=== PATIENT | female | born 1995 | race Caucasian/White ===

== ENCOUNTER 2017-08-08 18:25 | Emergency (ER) | payer OTHER ==
[~2017-08-08] VITALS: Ht 160 cm; Wt 104.3 kg
[~2017-08-08 18:25] MED LIST: CAMBIA50 MG; CELEXA20 MG; PHENERGAN25 MG/1 M1
[2017-08-08] MEDS ORDERED: HYDROCODONE/APAP 5MG-325MG TAB PO ONE (18:45)
[2017-08-08 20:57] VITALS: BP 120/70
== END 2017-08-08 21:01 | disposition home or self-care (01) ==
LOC: FSED 18:25
DX: M25.562 Pain in left knee (principal); S83.412A Sprain of medial collateral ligament of left knee, initial encounter; X50.1XXA Overexertion from prolonged static or awkward postures, initial encounter
CPT/HCPCS: 99283

== ENCOUNTER → 2017-09-04 | Outpatient (CLI) | payer OTHER ==
--- NOTE | 2017-09-04 10:35 | Diagnostic Imaging Report ---
TECHNIQUE: Magnetic resonance imaging of the right KNEE was performed WITHOUT injected contrast. HISTORY: knee pain COMPARISON: None available. FINDINGS: LIGAMENTS AND TENDONS: ACL: Intact PCL: Intact Collateral ligaments: Intact Iliotibial band: Unremarkable Popliteal tendon: Intact Extensor mechanism: Lateral patellar tracking with edema and Hoffa's fat superolaterally.. Quadriceps and patellar tendons intact. JOINT: Menisci: Medial: Intact Lateral: Intact Articular Cartilage: Medial Compartment: No focal defect. Lateral Compartment: No focal defect. Patellofemoral Compartment: Mild edema within the lateral patellar cartilage Joint Fluid: The amount of fluid within the joint is within physiologic limits. BONE: No focal or infiltrative bone marrow replacing abnormality. No acute fracture. SOFT TISSUES: Edema within the proximal gastrocnemius. IMPRESSION: Findings of lateral patellar maltracking with edema in Hoffa's fat and the lateral patellar cartilage. Edema in the proximal gastrocnemius may reflect strain versus delayed muscle soreness. Signed by: Dr. Cleve Brown M.D. on 09/04/2017 10:32 AM
== END ==
LOC: MRI 07:32
PROVIDERS: ATTEND Specialist
DX: S83.281A Other tear of lateral meniscus, current injury, right knee, initial encounter (principal)

== ENCOUNTER → 2017-10-30 | Day surgery (SDC) | payer OTHER ==
[~2017-10-30] MED LIST changes: +ACETAMINOPHEN 1000 MG/100 ML IV ONE; +ATENOLOL25 MG PO; +BUPIVACAINE 0.5%/EPI 30 ML SDV INJ ONE; +CAMBIA50 MG PO; +CEFAZOLIN SOD 2 GM/D5W 50ML 50 ML IV ONE; +DEXAMETHASONE SOD PHOS INJ 4 MG/ML VIAL ONE; +FENTANYL CITRATE/PF 100MCG/2 ML INJ ONE; +LIDOCAINE HCL 2% LOCAL INJ 5 ML SDV VIAL INJ ONE; +MIDAZOLAM HCL 2 MG/2 ML VIAL ONE; +ONDANSETRON HCL INJ 2 MG/ML VIAL ONE; +PHENERGAN PO; +PROPOFOL IV EMULSION 10 MG/ML 20 ML VIAL ONE; +SEVOFLURANE INHAL SOLN 250 ML PEN BTL ONE; +TOPIRAMATE25 MG PO
--- NOTE | 2017-11-01 20:26 | Operative Report ---
DATE OF PROCEDURE: October 30, 2017 PREOPERATIVE DIAGNOSIS: Right knee pain, possible occult right lateral meniscus tear. POSTOPERATIVE DIAGNOSIS: Right knee pain. OPERATION/PROCEDURE PERFORMED: Patient underwent right knee diagnostic arthroscopy. COMMUNICATIONS PROFESSIONAL: None. ANESTHESIA: General endotracheal intubation anesthesia. IV FLUIDS: Per the anesthesia record. BRIEF DESCRIPTION OF OPERATIVE PROCEDURE: Ms. Perez was taken to the operating room, placed in supine position on operating table. Following induction of general anesthesia, as well as endotracheal intubation, patient's right lower extremity was examined under anesthesia. She was found to have no effusion within the knee joint. Range of motion of the knee was normal. Her ligaments were stable. The patient's lower extremity was prepped and draped in standard surgical fashion. A 2-portal technique used to provide this patient arthroscopic evaluation of the joint. Examination of suprapatellar pouch, medial and lateral gutters found no evidence of loose bodies. The scope was advanced in medial compartment. Examination of medial compartment demonstrated no chondromalacia. There was no evidence of meniscus injury. The scope was advanced in the intercondylar notch. The anterior cruciate ligament was identified, found to be normal. The scope was advanced in lateral compartment and the lateral meniscus was thoroughly examined. There was no significant chondromalacia of the articulating surfaces. The knee was deflated with sterile normal saline. The portal sites were closed. Sterile dressings were applied and the patient was awakened, taken to post anesthesia care unit in stable condition. Job#: [id number] CQ
== END | disposition home or self-care (01) ==
LOC: OR 05:20
PROVIDERS: ATTEND Specialist
DX: S83.261A Peripheral tear of lateral meniscus, current injury, right knee, initial encounter (principal); S86.811A Strain of other muscle(s) and tendon(s) at lower leg level, right leg, initial encounter; G51.0 Bell's palsy; I10 Essential (primary) hypertension; E11.9 Type 2 diabetes mellitus without complications; Z88.8 Allergy status to other drugs, medicaments and biological substances; X58.XXXA Exposure to other specified factors, initial encounter; Z01.810 Encounter for preprocedural cardiovascular examination; Z68.41 Body mass index [BMI] 40.0-44.9, adult
CPT/HCPCS: 29870; 81025; 93005; J1100; J2001; J2250; J2405

== ENCOUNTER → 2020-02-15 | Day surgery (SDC) | payer OTHER ==
[2020-02-11 09:25] LABS: BASOPHILS % 0.4 % (0.0-1.0); EOSINOPHILS # (AUTO) 0.2 (0.0-0.4); EOSINOPHILS % 1.7 % (0.0-6.0); HEMATOCRIT 40.1 % (34.2-44.1); HEMOGLOBIN 13.4 g/dL (12.0-16.0); LYMPHOCYTES % 29.9 % (18.0-39.1); MEAN CORPUSCULAR HGB CONC 33.4 g/dL (31-35); MEAN CORPUSCULAR VOLUME 89.7 fL (81-99); MONOCYTES # (AUTO) 0.5 (0.2-0.8); MONOCYTES % 4.9 % (4.4-11.3); NEUTROPHILS # (AUTO) 6.2 (2.1-6.9); NEUTROPHILS % 62.7 % (38.7-80.0); PLATELET COUNT 326 x10e3/uL (140-360); RED BLOOD COUNT 4.47 x10e6/uL (3.6-5.1); RED CELL DISTRIBUTION WIDTH 12.8 % (11.7-14.4)
[~2020-02-15] MED LIST changes: -ACETAMINOPHEN 1000 MG/100 ML IV ONE; +BUPIVACAINE 0.25% 30ML SDV ONE; -BUPIVACAINE 0.5%/EPI 30 ML SDV INJ ONE; -CEFAZOLIN SOD 2 GM/D5W 50ML 50 ML IV ONE; +GLYCOPYRROLATE INJ 0.2 MG/ML VIAL ONE; +HYDROCODONE/APAP 7.5MG-325MG 1 EA TAB ONE; +NEOSTIGMINE 1 MG/ML 10ML VIAL ONE; -ONDANSETRON HCL INJ 2 MG/ML VIAL ONE; +ONDANSETRON HCL INJ 2MG/ML 2ML 2 MG/ML VIAL ONE; +ROCURONIUM BROMIDE 10 MG/ML 5ML VIAL IV ONE; +TOPAMAX25 MG PO; +[UNRECOGNIZED DRUG - OTHER] PO
--- NOTE | 2020-02-15 07:05 | NUR ---
SPIRITUAL CARE - Pre-Surgery Assessment: Pt in bed. Pt's boyfriend at bedside. Pt reported supportive attention from family and friends. Intervention: Raveler provided pastoral presence, hospitality, and sympathetic listening. Acquainted pt with availability of graduating machine operator while hospitalized. Outcome: Pt expressed appreciation for visit. No need for follow up indicated at this time. MAEGAN Lamar Spiritual Care Department O: [phone]
--- NOTE | 2020-02-15 10:39 | Operative Report ---
DATE OF PROCEDURE: 02/15/2020 SURGEON: Kristopher Davis MD PREOPERATIVE DIAGNOSIS: Pilonidal cyst with multiple sinuses. POSTOPERATIVE DIAGNOSIS: Pilonidal cyst with multiple sinuses. OPERATION PERFORMED: Wide excision of complex pilonidal cyst with rotational gluteal flap closure. BAND SAW OPERATOR CAKE CUTTING: GEOVANNY Walters. ANESTHESIA: General. COMPLICATIONS: None. ESTIMATED BLOOD LOSS: Minimal. DESCRIPTION OF PROCEDURE: With the patient lying in bed in the prone position under good general endotracheal anesthesia, the perineum and sacral area were prepped with Betadine solution and draped in the usual manner. An elliptical incision was made to include all the midline sinuses from the pilonidal cyst in the sacral area. Incision was deepened through the subcutaneous tissue all the way down to the sacral fascia and the cyst was then totally and completely removed of the fascia, making sure that we did not violate it at any point and was sent for pathological examination. Flaps were then developed in the gluteal aspect on both sides in order to be able to reapproximated. The fascia was then reapproximated at the midline anchoring to the sacral fascia using interrupted sutures of 2-0 Vicryl, the subcutaneous tissue was approximated with 2-0 Vicryl and the skin was closed with interrupted vertical mattress sutures of 2-0 and 3-0 silk. All layers were infiltrated on the way out with solution of 0.25% Marcaine. A dressing was applied. The sponge, lap, and needle count was correct. The patient tolerated the procedure well and returned to the recovery room in stable condition. MD ELMER RahmanR/MODL /[id number]
[2020-02-15 10:40] VITALS: BP 108/62
== END | disposition home or self-care (01) ==
LOC: OR 05:53
PROVIDERS: ATTEND Surgery
DX: L05.91 Pilonidal cyst without abscess (principal); R00.1 Bradycardia, unspecified; I10 Essential (primary) hypertension; Z88.8 Allergy status to other drugs, medicaments and biological substances; Z01.810 Encounter for preprocedural cardiovascular examination; Z01.812 Encounter for preprocedural laboratory examination; Z20.828 Contact with and (suspected) exposure to other viral communicable diseases
CPT/HCPCS: 11772; 36415; 81025; 85025; 88304; 93005; J1100; J2001; J2250; J2405; J2704; J2710; J3010; U0002